=== PATIENT | female | born 1990 | race Caucasian/White ===

== ENCOUNTER 2017-04-12 08:51 | Inpatient (IN) | payer OTHER ==
[~2017-04-12 08:51] MED LIST: DOCU-41 PO; IBUP800T28 PO
[2017-04-12] MEDS ORDERED: Lactated Ringer's 1,000 ML IV PRN (13:38)
[2017-04-12] MEDS ORDERED: Sodium Chloride LOK Flush 10 mL Syringe IVFLUSH PRN (13:40)
[2017-04-12] MEDS ORDERED: Carboprost 250 mCg/mL Inj IM PRN ×2 (13:40→17:40)
[2017-04-12] MEDS ORDERED: Methylergonovine 0.2 mg/mL Inj IM PRN ×2 (13:40→17:40)
[2017-04-12] MEDS ORDERED: Oxytocin 10 Unit/mL Inj IM PRN ×2 (13:40→17:40)
[2017-04-12] MEDS ORDERED: Hemorrhage Kit, Post Partum XX ONE ×2 (13:40→17:40)
[2017-04-12] MEDS ORDERED: Oxytocin 30 Units/500 mL LR 30 UNITS in IV Premix 1 EACH IV PRN ×2 (13:40→17:40)
[2017-04-12 14:46] LABS: Mean Corpuscular Hemoglobin 29.2 pg (27.0-35.0); Mean Corpuscular Volume 87.6 fL (81-100)
--- NOTE | 2017-04-12 16:54 | HP ---
[address] [address] HISTORY AND PHYSICAL PATIENT: YVONNE SCOTT : 1990 MR#: [id number] ADMIT: 04/12/2017 JOB ID: [id number] CHIEF COMPLAINT: Increased contractions at 41 weeks, presents for nonstress testing. HISTORY OF PRESENT ILLNESS: A 26-year-old 3, para 1, SAB one, living children one, with an EDC of April 05, 2017, presents at 41 weeks gestation. She initially came in this morning for a nonstress test, however she has had increased contractions since the erisa attorney hours and passed her mucous plug. In triage she is found to be 4 cm dilated. After few hours of walking around she progresses to 6 cm and is admitted. She has a history of a fast labor with her first delivery. She does not want an epidural. LABORATORY: Blood type O positive. Rubella immune. Serology nonreactive. Hepatitis B surface antigen and HIV tests all negative. At the onset of an A1c was 5.1, her Pap was normal, and gonorrhea and Chlamydia cultures were negative. Urine culture showed mixed karely. Her antibody screen was normal at nine weeks. Hematocrit at 27+ weeks was 39.9. A 2-hour glucose tolerance test at that time showed a fasting of 65, a 1-hour of 82, and a 2-hour of 102. She declined risk testing. She is GBS negative, screened March 20, 2017. PAST GYNECOLOGIC HISTORY: 3, para one. In 2014 she had a first trimester spontaneous . In 2015 she had a vaginal delivery to an 8 pound 3 ounce male with a third-degree tear and was treated for group B strep but otherwise had no major complications. Third is her current. SOCIAL HISTORY: She is , a mother of one. Works as a caregiver. Is a nonsmoker. Drinks no alcohol currently and has previously denied recreational drug use. PAST SURGICAL HISTORY: Eye surgery as a child. PAST MEDICAL HISTORY: 1. Excess weight. 2. Depression in high school. 3. PENICILLIN AND AMOXICILLIN ALLERGIES. 4. History of glasses and probably what sounds like strabismus. FAMILY HISTORY: Positive for diabetes and hypertension, but no congenital or defects. PHYSICAL EXAMINATION: Please see nursing notes for admitting vital signs. She is an overnourished gravid woman dealing remarkably well with her contractions when I arrive about 4 p.m. as she has just ruptured membranes and was found to be 7 cm. By Nazario's done in the office her infant is in vertex position with estimated weight in the 8 pound range. Cervical examination shows her 7 cm, 90% effaced, -1 station. heart tracing shows a baseline in the 130s with several accelerations, a category one tracing. ASSESSMENT: 1. Gravid at 41 weeks. 2. Entering active labor, now with rupture of membranes with clear fluid. 3. GBS negative. 4. PENICILLIN ALLERGY CAUSES A RASH. 5. History of fairly rapid labors. PLAN: The patient is coping remarkably well with contractions. Does not want anything for pain. Has a supportive family. Continue expectant management.
[2017-04-12] MEDS ORDERED: HYDROcodone-APAP 5-325 mg Tablet PO PRN (17:40)
[2017-04-12] MEDS ORDERED: Benzocaine (Dermoplast) 20% 60 Gm Spray TOPICAL PRN (17:40)
[2017-04-12] MEDS ORDERED: Witch Hazel-Glycerin Pads TOPICAL PRN (17:40)
[2017-04-12] MEDS ORDERED: LANOlin HPA 7 Gm Ointment TOPICAL PRN (17:40)
[2017-04-12] MEDS ORDERED: Lactated Ringer's 1,000 ML IV SCH (17:40)
--- NOTE | 2017-04-12 18:15 | OP ---
[address] [address] OPERATIVE REPORT PATIENT: YVONNE SCOTT : 1990 MR#: [id number] ADMIT: 04/12/2017 JOB ID: [id number] DELIVERY NOTE Date of delivery: 04/12/2017 Delivery position: AMANDA. Apgars: 9 and 9. Delivery weight: 4249 grams (9 pounds 6 ounces) Umbilical cord: Three-vessel cord. Normal length and appearance. Placenta: Side cord insertion. No evidence of retained fragments. EBL: 300 cc. Lacerations: Second-degree perineal. Complications: loose nuchal cord. Anesthesia: Lidocaine for repair, 10 cc. Narrative: The patient felt a strong urge to push. She had an anterior lip of cervix per the nurse who checked her. She could not control her urge to push, pushed only a few times, rapidly delivering the head. Nuchal cord was identified. Before I could reduce this, the entire shoulders and body delivered and the infant was then promptly handed up to mother and nursing for stimulation. Cord was clamped after a 2 minute delay. Cord blood collected and sent. Perineum was inspected and showed a second-degree perineal tear. Lidocaine 10 mL was instilled and this was repaired using 2-0 Vicryl with retraction assistance from Judy Grady, MS3. Rectal exam after repair showed intact sphincter tone and no evidence of rectal-vaginal button hole tear. Placenta delivered with gentle traction on the cord after delivery. Bleeding slowed rapidly with IV oxytocin and fundal massage. Patient is stable post delivery. She plans to breastfeed. Sponge and needle counts were correct after delivery. [facility]
[2017-04-13 07:41] LABS: Mean Corpuscular Hemoglobin 29.5 pg (27.0-35.0); Mean Corpuscular Volume 87.9 fL (81-100)
--- NOTE | 2017-04-13 09:13 | PCM.DIOB ---
Obstetrical Disch Instruction Date of Service: Apr 13, 2017 Dates of Hospitalization Date of Hospital Admission Apr 12, 2017 at 11:47 Providers Admitting Physician: Chevy Lopez MD Primary Care Physician: Chevy Lopez MD Attending Physician: Chevy Lopez MD Discharge Diagnosis Problems: (1) Encounter for full-term uncomplicated delivery Status: Acute ICD Code: O80 Diet Discharge Diet: No restrictions Activity Discharge Activity-General: Pelvic Rest for 6 weeks Dressing and Incisional Care Hygiene: May shower Follow Up Plan Follow-up Provider (F9): Chevy Lopez MD Follow-up appointment: Weeks (6) Call your provider for: Fever or Chills, Shortness of breath, Heavy vaginal bleeding, Excessive constipation, Red painful breasts Chevy Lopez MD Apr 13, 2017 09:13
[2017-04-13] MEDS ORDERED: IBUP800T28 PO (09:15)
[2017-04-13] MEDS ORDERED: PNV1TABL PO (09:15)
[2017-04-13] MEDS ORDERED: DOCU-41 PO (09:15)
--- NOTE | 2017-04-13 10:26 | DIS ---
[address] [address] DISCHARGE SUMMARY PATIENT: YVONNE SCOTT : 1990 MR#: [id number] ADMIT: 04/12/2017 JOB ID: [id number] DIS: DATE OF SERVICE: 04/13/2017 DISCHARGE DIAGNOSES: 1. Spontaneous vaginal delivery at 41 weeks gestation to a 4249 gram viable male. 2. Excess weight. 3. PENICILLIN and AMOXICILLIN allergy. 4. History of depression remotely as a teen. DISCHARGE MEDICATIONS: 1. vitamin 1 tablet daily. 2. Ibuprofen 800 mg q.6 h. p.r.n. pain. 3. Docusate sodium 100 mg p.o. b.i.d. p.r.n. constipation. DISCHARGE DIAGNOSES: 1. Follow up at six weeks with Dr. Lopez. 2. Breast feed ad barbara. 3. Activity ad barbara, except for pelvic rest for 6 weeks. 4. Call for increased bleeding, fevers, shortness of breath, breast pain, excess constipation, etc. HOSPITAL COURSE: The patient is a now 26-year-old, 3, para 2, SAB 1, living children 1 who presented at 41 weeks gestation for her nonstress test. She was already in active labor, was admitted, and went on to have a rapid uncomplicated delivery to a 9 pound 5 ounce viable male. There was a nuchal cord, but delivery was too rapid to reduce this. She sustained a second-degree perineal tear which was repaired. , she is caring for her well. She had one or two elevated blood pressures which rapidly returned to normal and so no further workup is planned. Her hematocrit dropped from 43.2 to 37.8, but her lochia is slowing and her pain is adequately controlled with ibuprofen. She would like to go home later today. She will follow up in six weeks or sooner if problems. She has good social support. MOLLY
[2017-04-13 17:23] VITALS: BP 134/75; PULSE 76; RESP 20
== END 2017-04-13 18:10 | disposition home or self-care (01) | DRG 775 ==
LOC: FBCO 08:51 → FBC 11:47
PROVIDERS: ADMIT Family Medicine; ATTEND Family Medicine
PROC: 10E0XZZ Delivery of Products of Conception, External Approach (ICD-10-PCS; principal; 2017-04-12)
PROC: 0KQM0ZZ Repair Perineum Muscle, Open Approach (ICD-10-PCS; 2017-04-12)
DX: O70.1 Second degree perineal laceration during delivery (principal); Z37.0 Single live birth; O26.03 Excessive weight gain in pregnancy, third trimester; Z3A.41 41 weeks gestation of pregnancy; O69.81X0 Labor and delivery complicated by cord around neck, without compression, not applicable or unspecified